=== PATIENT | male | born 1980 | race Caucasian/White ===

== ENCOUNTER 2019-09-13 17:27 | Emergency (ER) | payer MEDICAID ==
[~2019-09-13] VITALS: Ht 180.3 cm; Wt 86.4 kg
[~2019-09-13 17:27] MED LIST: FAMO20TA8 PO
[2019-09-13 17:29] VITALS: BP 161/107
== END 2019-09-13 20:31 | disposition home or self-care (01) ==
LOC: ER 17:28
DX: J00 Acute nasopharyngitis [common cold] (principal); J45.909 Unspecified asthma, uncomplicated; F41.9 Anxiety disorder, unspecified; F32.9 Major depressive disorder, single episode, unspecified; F10.10 Alcohol abuse, uncomplicated; F12.90 Cannabis use, unspecified, uncomplicated; F17.210 Nicotine dependence, cigarettes, uncomplicated; Z79.899 Other long term (current) drug therapy; Z56.0 Unemployment, unspecified; Z59.0 Homelessness; Z86.19 Personal history of other infectious and parasitic diseases; Y90.9 Presence of alcohol in blood, level not specified
CPT/HCPCS: 99283

== ENCOUNTER 2019-11-13 20:14 | Emergency (ER) | payer MEDICAID ==
[~2019-11-13] VITALS: Ht 180.3 cm; Wt 81.0 kg
--- NOTE | 2019-11-13 20:34 | NUR ---
PT IS RESTING QUIETLY ON GURNEY, RESP EVEN AND UNLABORED, GCS 15, ALERT AND ORIENTED, WAITING TO BE EVALUATED BY PROVIDER
--- NOTE | 2019-11-13 21:14 | NUR ---
PT RESTING QUIETLY, RESP EVEN AND UNLABORED, AMB WITH STEADY TO RESTROOM, QI PO WELL, NO N/V
[2019-11-13 21:53] VITALS: BP 139/77
== END 2019-11-13 21:55 | disposition home or self-care (01) ==
LOC: ER 20:14
DX: T40.1X1A Poisoning by heroin, accidental (unintentional), initial encounter (principal); J45.909 Unspecified asthma, uncomplicated; F41.9 Anxiety disorder, unspecified; F32.9 Major depressive disorder, single episode, unspecified; F10.10 Alcohol abuse, uncomplicated; F12.90 Cannabis use, unspecified, uncomplicated; F15.90 Other stimulant use, unspecified, uncomplicated; Z60.2 Problems related to living alone; Z56.0 Unemployment, unspecified; Z59.0 Homelessness; Z86.19 Personal history of other infectious and parasitic diseases; Z79.899 Other long term (current) drug therapy; Y92.89 Other specified places as the place of occurrence of the external cause; Y90.9 Presence of alcohol in blood, level not specified
CPT/HCPCS: 99283

== ENCOUNTER 2020-01-28 22:53 | Emergency (ER) | payer MEDICAID ==
[~2020-01-28] VITALS: Ht 180.3 cm; Wt 70.0 kg
[2020-01-28] MEDS ORDERED: CEPH-572 PO (23:40)
[2020-01-28] MEDS ORDERED: SULF1TAB49 PO (23:40)
[2020-01-28] MEDS ORDERED: CefTRIAXone 1000mg IM Kit (w/lidocaine diluent) IM ONE (23:40)
[2020-01-28] MEDS ORDERED: sulfamethoxazole/trimethoprim DS (800/160mg) tablet PO ONE (23:40)
[2020-01-29 00:16] VITALS: BP 152/99
== END 2020-01-29 00:17 | disposition home or self-care (01) ==
LOC: ER 22:55
DX: S60.561A Insect bite (nonvenomous) of right hand, initial encounter (principal); L03.113 Cellulitis of right upper limb; F41.9 Anxiety disorder, unspecified; F32.9 Major depressive disorder, single episode, unspecified; F12.90 Cannabis use, unspecified, uncomplicated; F15.90 Other stimulant use, unspecified, uncomplicated; F11.90 Opioid use, unspecified, uncomplicated; F10.10 Alcohol abuse, uncomplicated; J45.909 Unspecified asthma, uncomplicated; Z59.0 Homelessness; Z56.0 Unemployment, unspecified; W57.XXXA Bitten or stung by nonvenomous insect and other nonvenomous arthropods, initial encounter; Y93.89 Activity, other specified; Y92.89 Other specified places as the place of occurrence of the external cause; Y99.8 Other external cause status
CPT/HCPCS: 96372; 99283; J0696

== ENCOUNTER 2022-10-23 16:27 | Emergency (ER) | payer MEDICAID ==
[~2022-10-23] VITALS: Ht 180.3 cm; Wt 90.9 kg
[2022-10-23 16:34] VITALS: BP 158/105
[2022-10-23] MEDS ORDERED: normal saline 1000ML IV soln IVB ONE (18:05)
[2022-10-23] MEDS ORDERED: HYDROcodone/acetaminophen 5mg/325mg tablet PO ONE (18:05)
[2022-10-23 18:24] LABS: BASOPHILS # (AUTO) 0.1 X10'3 (0-0.2); BASOPHILS % (AUTO) 0.9 % (0-1); EOSINOPHILS # (AUTO) 0.1 X10'3 (0-0.9); EOSINOPHILS % (AUTO) 1.7 % (0-6); HEMATOCRIT 45.5 % (42.0-52.0); HEMOGLOBIN 14.9 g/dl (14.0-17.9); LYMPHOCYTES # (AUTO) 2.3 X10'3 (1.1-4.8); LYMPHOCYTES % (AUTO) 26.8 % (21-51); MEAN CORPUSCULAR HEMOGLOBIN 31.6 PG (27.0-31.0); MEAN CORPUSCULAR HGB CONC 32.7 g/dL (33.0-36.5); MEAN CORPUSCULAR VOLUME 96.5 FL (78-98); MEAN PLATELET VOLUME 8.9 FL (7.4-10.4); MONOCYTES # (AUTO) 0.5 X10'3 (0-0.9); MONOCYTES % (AUTO) 6.2 % (2-12); NEUTROPHILS # (AUTO) 5.5 X10'3 (1.8-7.7); NEUTROPHILS % (AUTO) 64.4 % (42-75); PLATELET COUNT 283 X10'3 (140-440); RED BLOOD COUNT 4.71 X10'6 (4.70-6.10); RED CELL DISTRIBUTION WIDTH 13.4 % (11.5-14.5); WHITE BLOOD COUNT 8.6 X10'3 (4.5-11.0)
[2022-10-23 18:43] LABS: ALANINE AMINOTRANSFERASE 29 U/L (12-78); ALBUMIN 3.9 G/DL (3.4-5.0); ALBUMIN/GLOBULIN RATIO 1.2 (1.1-1.5); ALKALINE PHOSPHATASE 82 IU/L (46-116); ANION GAP 10 (8-16); ASPARTATE AMINO TRANSFERASE 40 U/L (10-37); BILIRUBIN,TOTAL 0.6 MG/DL (0.1-1.0); BLOOD UREA NITROGEN 16 MG/DL (7-18); BUN/CREATININE RATIO 14.8 (5.4-32.0); CHLORIDE 103 MMOL/L (99-107); CREATININE 1.08 MG/DL (0.60-1.10); GLUCOSE 117 MG/DL (70-104); POTASSIUM 3.6 MMOL/L (3.5-5.1); SODIUM 136 MMOL/L (135-145); TOTAL CARBON DIOXIDE 22.8 MMOL/L (24-32); TOTAL PROTEIN 7.1 G/DL (6.4-8.2); eGFR 75 ML/MIN
[2022-10-23] MEDS ORDERED: sulfamethoxazole/trimethoprim DS (800/160mg) tablet PO ONE (19:00)
[2022-10-23] MEDS ORDERED: cephalexin 500mg capsule PO ONE ×2 (19:00→19:40)
[2022-10-23] MEDS ORDERED: terbinafine cream 30gm TP STA (19:40)
[2022-10-23] MEDS ORDERED: SULF1TAB49 PO (20:00)
[2022-10-23] MEDS ORDERED: HYDR-3965 PO (20:00)
[2022-10-23] MEDS ORDERED: CEPH500C82 PO (20:00)
== END 2022-10-23 20:44 | disposition home or self-care (01) ==
LOC: ER 16:28
DX: L03.116 Cellulitis of left lower limb (principal); L03.115 Cellulitis of right lower limb; B99.8 Other infectious disease; F31.9 Bipolar disorder, unspecified; J45.909 Unspecified asthma, uncomplicated; F12.10 Cannabis abuse, uncomplicated; F15.10 Other stimulant abuse, uncomplicated; Z79.899 Other long term (current) drug therapy; Z59.00 Homelessness unspecified; Z56.0 Unemployment, unspecified
CPT/HCPCS: 36415; 73630; 80053; 83605; 85025; 87040; 96360; 99284; J7030

== ENCOUNTER 2023-08-27 15:20 | Emergency (ER) | payer MEDICAID ==
[~2023-08-27] VITALS: Ht 177.8 cm; Wt 75.0 kg
--- NOTE | 2023-08-27 18:30 | NUR ---
Patient is sleeping in a low fowlers position. No distress.
--- NOTE | 2023-08-27 19:26 | NUR ---
Patient has repositioned onto his left side. No distress.
--- NOTE | 2023-08-27 20:41 | NUR ---
Patient is sleeping quietly on his right side. In view from nurses station.
--- NOTE | 2023-08-27 22:29 | NUR ---
Patient awakens, he is aggitated. Patient slams his fist into the bed. 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 He demands food.
[2023-08-27] MEDS ORDERED: LORazepam 1 MG tablet PO ONE (22:50)
[2023-08-27] MEDS ORDERED: diphenhydrAMINE 25mg capsule PO ONE (22:50)
[2023-08-27 22:59] LABS: MEAN CORPUSCULAR HEMOGLOBIN 32.3 PG (27.0-31.0); MEAN PLATELET VOLUME 8.6 FL (7.4-10.4)
[2023-08-27 23:00] LABS: BASOPHILS # (AUTO) 0.1 X10'3 (0-0.2); BASOPHILS % (AUTO) 1.2 % (0-1); EOSINOPHILS # (AUTO) 0.1 X10'3 (0-0.9); EOSINOPHILS % (AUTO) 1.8 % (0-6); HEMATOCRIT 42.2 % (42.0-52.0); HEMOGLOBIN 14.2 g/dl (14.0-17.9); LYMPHOCYTES # (AUTO) 2.7 X10'3 (1.1-4.8); LYMPHOCYTES % (AUTO) 37.6 % (21-51); MEAN CORPUSCULAR HGB CONC 33.6 g/dL (33.0-36.5); MEAN CORPUSCULAR VOLUME 96.2 FL (78-98); MONOCYTES # (AUTO) 0.5 X10'3 (0-0.9); MONOCYTES % (AUTO) 6.8 % (2-12); NEUTROPHILS # (AUTO) 3.7 X10'3 (1.8-7.7); NEUTROPHILS % (AUTO) 52.6 % (42-75); PLATELET COUNT 231 X10'3 (140-440); RED BLOOD COUNT 4.39 X10'6 (4.70-6.10); RED CELL DISTRIBUTION WIDTH 13.3 % (11.5-14.5); WHITE BLOOD COUNT 7.1 X10'3 (4.5-11.0)
[2023-08-27 23:06] LABS: ALANINE AMINOTRANSFERASE 21 U/L (12-78); ALBUMIN 3.1 G/DL (3.4-5.0); ALBUMIN/GLOBULIN RATIO 1.2 (1.1-1.5); ALKALINE PHOSPHATASE 70 IU/L (46-116); ANION GAP 7 (8-16); ASPARTATE AMINO TRANSFERASE 32 U/L (10-37); BILIRUBIN,TOTAL 0.5 MG/DL (0.1-1.0); BLOOD UREA NITROGEN 15 MG/DL (7-18); BUN/CREATININE RATIO 14.3 (10.0-20.0); CALCIUM 8.7 MG/DL (8.5-10.1); CHLORIDE 106 MMOL/L (99-107); CREATININE 1.05 MG/DL (0.60-1.10); GLUCOSE 89 MG/DL (70-104); POTASSIUM 3.6 MMOL/L (3.5-5.1); SODIUM 138 MMOL/L (135-145); TOTAL CARBON DIOXIDE 24.6 MMOL/L (24-32); TOTAL PROTEIN 5.7 G/DL (6.4-8.2); eCRCL 93 ML/MIN; eGFR 77 ML/MIN
[2023-08-27 23:15] LABS: THYROID STIMULATING HORMONE 0.46 ulU/ml (0.34-4.50)
--- NOTE | 2023-08-28 01:15 | NUR ---
Patient sleeps well. Good color. He has self repositioned in bed.
--- NOTE | 2023-08-28 01:21 | NUR ---
Unable to complete [place] Suicide Score as patient is uncooperative and will not answer questions. Per 5150 this patient was going to jump from a bridge.
[2023-08-28 04:05] LABS: URINE AMPHETAMINE SCREEN POSITIVE (Neg); URINE BARBITUATE SCREEN NEGATIVE (Neg); URINE BENZODIAZEPINES SCREEN NEGATIVE (Neg); URINE CANNABINOID SCREEN NEGATIVE (Neg); URINE COCAINE SCREEN NEGATIVE (Neg); URINE METHADONE SCREEN NEGATIVE (Neg); URINE OPIATE SCREEN NEGATIVE (Neg); URINE PHENCYCLIDINE SCREEN NEGATIVE (Neg)
[2023-08-28 04:06] LABS: BILIRUBIN,URINE SMALL (Neg); CLARITY,URINE CLEAR (Clear); GLUCOSE, URINE NEGATIVE (Neg); KETONES,URINE TRACE mg/dl (Neg); LEUKOCYTE ESTERASE ,URINE NEGATIVE (Neg); NITRITES, URINE NEGATIVE (Neg); OCCULT BLOOD,URINE NEGATIVE (Neg); PH,URINE 5.5 (4.8-8.0); PROTEIN,URINE NEGATIVE (Neg); UROBILINOGEN,URINE 0.2 E.U/dL (0.2-1.0)
[2023-08-28 04:17] LABS: COLOR,URINE DARK YELLOW (Yellow); UA COLLECTION TYPE NON-SPECIFIED
--- NOTE | 2023-08-28 04:17 | NUR ---
Patient sleeps quietly, no distress.
[2023-08-28 04:21] LABS: BACTERIA,URINE FEW /HPF (Neg); MUCUS STRANDS MANY /LPF (Neg); RBC,URINE 0-2 /HPF (0-2); SQUAMOUS EPITHELIAL CELL,UR FEW /LPF (FEW); WBC,URINE 0-4 /HPF (0-4)
[2023-08-28 04:27] LABS: HYALINE CASTS 0-3 /LPF (NEGATIVE); TRICHOMONAS,URINE FEW /HPF (NEGATIVE)
[2023-08-28] MEDS ORDERED: ondansetron 4mg rapidly disintigrating tab PO ONE (04:45)
[2023-08-28] MEDS ORDERED: metroNIDAZOLE 500mg tablet PO ONE (04:45)
--- NOTE | 2023-08-28 05:50 | NUR ---
Patient sleeps quietly. He has repositioned self in bed. No distress.
--- NOTE | 2023-08-28 06:30 | NUR ---
Pt asleep in bed on left side. Respirations even and unlabored. No s/s of distress. Will continue to monitor.
--- NOTE | 2023-08-28 08:30 | NUR ---
Pt asleep in bed lying on left side. Respirations even and unlabored. No s/s of distress.
--- NOTE | 2023-08-28 09:00 | NUR ---
Pt is eating breakfast at bedside.
--- NOTE | 2023-08-28 09:53 | NUR ---
[facility] with pt. Pt uncooperative.
--- NOTE | 2023-08-28 10:08 | NUR ---
Pt escorted out by security. Pt was yelling.
[2023-08-28 10:23] VITALS: BP 152/110; PULSE 84; RESP 16; TEMP 98.3; O2SAT 99
== END 2023-08-28 10:08 | disposition home or self-care (01) ==
LOC: ER 15:20
DX: R45.851 Suicidal ideations (principal); Z20.822 Contact with and (suspected) exposure to COVID-19; J45.909 Unspecified asthma, uncomplicated; F12.90 Cannabis use, unspecified, uncomplicated; F15.90 Other stimulant use, unspecified, uncomplicated; F11.90 Opioid use, unspecified, uncomplicated; F41.9 Anxiety disorder, unspecified; F32.A Depression, unspecified; Z76.5 Malingerer [conscious simulation]; Z56.0 Unemployment, unspecified; Z59.00 Homelessness unspecified; Z79.899 Other long term (current) drug therapy
CPT/HCPCS: 36415; 80053; 80305; 81001; 84443; 85025; 87811; 99285; Q0163

== ENCOUNTER 2024-09-10 00:02 | Inpatient (IN) | payer MEDICAID ==
[~2024-09-10] VITALS: Ht 180.3 cm; Wt 83.0 kg
[2024-09-10] MEDS: piperacillin/tazo 3.375gm/50ml 50 ML IV ONE (02:32)
[2024-09-10 02:50] LABS: ANION GAP 8 (8-16); BLOOD UREA NITROGEN 16 MG/DL (7-18); BUN/CREATININE RATIO 13.3 (10.0-20.0); CALCIUM 8.6 MG/DL (8.5-10.1); CHLORIDE 103 MMOL/L (99-107); GLUCOSE 119 MG/DL (70-104); POTASSIUM 3.7 MMOL/L (3.5-5.1); SODIUM 136 MMOL/L (135-145); TOTAL CARBON DIOXIDE 25.2 MMOL/L (24-32); eCRCL 77 ML/MIN; eGFR 65 ML/MIN
[2024-09-10 02:52] LABS: BASOPHILS # (AUTO) 0.1 X10'3 (0-0.2); BASOPHILS % (AUTO) 0.7 % (0-1); EOSINOPHILS # (AUTO) 0.1 X10'3 (0-0.9); HEMOGLOBIN 14.2 g/dl (14.0-17.9); LYMPHOCYTES # (AUTO) 1.8 X10'3 (1.1-4.8); MONOCYTES # (AUTO) 0.6 X10'3 (0-0.9)
[2024-09-10 02:55] LABS: HEMATOCRIT 41.4 % (42.0-52.0); LYMPHOCYTES % (AUTO) 18.8 % (21-51); MEAN CORPUSCULAR HEMOGLOBIN 32.1 PG (27.0-31.0); MEAN CORPUSCULAR HGB CONC 34.3 g/dL (33.0-36.5); MEAN CORPUSCULAR VOLUME 93.5 FL (78-98); MEAN PLATELET VOLUME 9.3 FL (7.4-10.4); MONOCYTES % (AUTO) 6.3 % (2-12); NEUTROPHILS # (AUTO) 6.9 X10'3 (1.8-7.7); NEUTROPHILS % (AUTO) 73.2 % (42-75); PLATELET COUNT 279 X10'3 (140-440); RED BLOOD COUNT 4.43 X10'6 (4.70-6.10); RED CELL DISTRIBUTION WIDTH 13.1 % (11.5-14.5); WHITE BLOOD COUNT 9.5 X10'3 (4.5-11.0)
[2024-09-10] MEDS: VANCOMYCIN 1,500MG in normal saline IV soln 300 ML IV ONE (02:59)
[2024-09-10] MEDS ORDERED: magnesium sulf-water 2g/50mL 50 ML IV PRN (05:20)
[2024-09-10] MEDS ORDERED: potassium Cl 40MEQ/1/2NS 520ml 520 ML IV PRN (05:20)
[2024-09-10] MEDS ORDERED: dextrose 50%-water 50ml dispensing syringe IV PRN (05:20)
[2024-09-10] MEDS ORDERED: mag hydrox/Alum hydrox/simeth 30ml oral suspension PO PRN (05:20)
[2024-09-10] MEDS ORDERED: magnesium Cl slow-release 64mg tablet PO PRN (05:20)
[2024-09-10] MEDS ORDERED: potassium Cl 20 mEq SR tablet PO PRN ×2 (05:20)
[2024-09-10] MEDS ORDERED: ondansetron/PF 4mg/2ml inj IV PRN (05:20)
[2024-09-10] MEDS ORDERED: acetaminophen 325mg tablet PO PRN (05:20)
[2024-09-10] MEDS ORDERED: haloperidol 5mg tablet PO PRN (05:20)
[2024-09-10] MEDS ORDERED: LORazepam 1 MG tablet PO PRN ×2 (05:20→15:00)
[2024-09-10] MEDS ORDERED: magnesium sulf-water 4G/100mL 100 ML IV PRN (05:20)
[2024-09-10] MEDS ORDERED: magnesium hydroxide 30ml (MOM) UD suspension PO PRN (05:20)
[2024-09-10] MEDS ORDERED: LORazepam 2 mg/ml vial IV PRN ×2 (05:20→15:00)
[2024-09-10] MEDS ORDERED: haloperidol lactate 5mg/ml inj IM PRN (05:20)
[2024-09-10] MEDS: PERFLUTREN PROTEIN-A MICROSPHR (Optison) 0.22 MG/ML 3ML VIAL IV ONE (05:29)
[2024-09-10] MEDS ORDERED: NO HOME MEDS (05:42)
[2024-09-10 07:00] VITALS: BP 135/84; PULSE 78; RESP 18; TEMP 97.3; O2SAT 97
[2024-09-10] MEDS: K and/or MAG REPLACEMENT MC SCH (08:00)
[2024-09-10 08:06] LABS: BILIRUBIN,URINE NEGATIVE (Neg); CLARITY,URINE CLEAR (Clear); COLOR,URINE YELLOW (Yellow); GLUCOSE, URINE NEGATIVE (Neg); KETONES,URINE NEGATIVE (Neg); LEUKOCYTE ESTERASE ,URINE NEGATIVE (Neg); NITRITES, URINE NEGATIVE (Neg); OCCULT BLOOD,URINE NEGATIVE (Neg); PH,URINE 5.5 (4.8-8.0); PROTEIN,URINE NEGATIVE (Neg); UROBILINOGEN,URINE 0.2 E.U/dL (0.2-1.0)
[2024-09-10] MEDS: HYDROcodone/acetaminophen 5mg/325mg tablet PO PRN (08:12)
[2024-09-10 08:13] LABS: UA COLLECTION TYPE URINAL
[2024-09-10] MEDS: nicotine 14mg patch - 24hr TD SCH (08:32)
[2024-09-10] MEDS: docusate sod 100mg capsule PO SCH (08:32)
[2024-09-10] MEDS: thiamine 100mg/ml 2ml inj. IV SCH (08:32)
[2024-09-10] MEDS: enoxaparin 40mg/0.4ml syringe SUBCUT SCH (08:33)
[2024-09-10 08:54] LABS: URINE AMPHETAMINE SCREEN POSITIVE (Neg); URINE BARBITUATE SCREEN NEGATIVE (Neg); URINE BENZODIAZEPINES SCREEN NEGATIVE (Neg); URINE CANNABINOID SCREEN NEGATIVE (Neg); URINE COCAINE SCREEN NEGATIVE (Neg); URINE METHADONE SCREEN NEGATIVE (Neg); URINE OPIATE SCREEN NEGATIVE (Neg); URINE PHENCYCLIDINE SCREEN NEGATIVE (Neg)
[2024-09-10 10:00] VITALS: RESP 18
[2024-09-10 10:05] LABS: HEMOGLOBIN A1C 4.8 % (4.5-6.2)
[2024-09-10] MEDS: folic acid 1mg/0.2ml inj IV SCH (12:08)
[2024-09-10 12:44] VITALS: BP 134/83; PULSE 88; TEMP 97.4; O2SAT 97
[2024-09-10] MEDS: piperacillin/tazo 3.375gm/50ml 50 ML IV SCH (13:03)
[2024-09-10] MEDS: VANCOMYCIN 1GM 200ML H20 (PEG) 200 ML IV SCH (15:41)
[2024-09-10 18:00] VITALS: BP 133/80; PULSE 90; RESP 16; TEMP 97.3; O2SAT 97
[2024-09-10 20:00] VITALS: RESP 16; O2SAT 97
[2024-09-10 22:00] VITALS: BP 145/95; PULSE 89; RESP 18; TEMP 97.5; O2SAT 97
[2024-09-11 02:54] LABS: BASOPHILS # (AUTO) 0.1 X10'3 (0-0.2); EOSINOPHILS # (AUTO) 0.2 X10'3 (0-0.9); EOSINOPHILS % (AUTO) 2.5 % (0-6); HEMATOCRIT 40.6 % (42.0-52.0); HEMOGLOBIN 13.5 g/dl (14.0-17.9); LYMPHOCYTES # (AUTO) 2.2 X10'3 (1.1-4.8); LYMPHOCYTES % (AUTO) 34.3 % (21-51); MEAN CORPUSCULAR HEMOGLOBIN 31.5 PG (27.0-31.0); MEAN CORPUSCULAR HGB CONC 33.3 g/dL (33.0-36.5); MEAN CORPUSCULAR VOLUME 94.8 FL (78-98); MEAN PLATELET VOLUME 8.6 FL (7.4-10.4); MONOCYTES # (AUTO) 0.6 X10'3 (0-0.9); MONOCYTES % (AUTO) 9.2 % (2-12); NEUTROPHILS # (AUTO) 3.4 X10'3 (1.8-7.7); PLATELET COUNT 248 X10'3 (140-440); RED BLOOD COUNT 4.28 X10'6 (4.70-6.10); RED CELL DISTRIBUTION WIDTH 13.4 % (11.5-14.5); WHITE BLOOD COUNT 6.4 X10'3 (4.5-11.0)
[2024-09-11 03:04] LABS: ANION GAP 6 (8-16); BLOOD UREA NITROGEN 12 MG/DL (7-18); BUN/CREATININE RATIO 12.5 (10.0-20.0); CALCIUM 8.2 MG/DL (8.5-10.1); CHLORIDE 104 MMOL/L (99-107); CREATININE 0.96 MG/DL (0.60-1.10); GLUCOSE 101 MG/DL (70-104); MAGNESIUM 1.6 MG/DL (1.5-2.4); POTASSIUM 3.9 MMOL/L (3.5-5.1); SODIUM 139 MMOL/L (135-145); eCRCL 96 ML/MIN; eGFR 85 ML/MIN
[2024-09-11 06:00] VITALS: BP 144/89; PULSE 84; RESP 16; TEMP 97.9; O2SAT 96
[2024-09-11 11:00] VITALS: BP 138/88; PULSE 90; RESP 14; TEMP 98; O2SAT 98
[2024-09-11] MEDS: carVEDilol 3.125mg tablet PO SCH (11:04)
[2024-09-11] MEDS: VANCOMYCIN LEVEL IV ONE (14:40)
[2024-09-11 18:00] VITALS: BP 156/99; PULSE 84; RESP 18; TEMP 97.4; O2SAT 99
[2024-09-11] MEDS: lisinopril 5mg tablet PO SCH (19:28)
[2024-09-11 20:00] VITALS: RESP 18; O2SAT 99
[2024-09-11 22:00] VITALS: BP 152/100; PULSE 66; RESP 16; TEMP 98.1; O2SAT 98
[2024-09-12] MEDS: VANCOMYCIN 1,500MG in NS 300ml IVPB IV SCH (04:06)
[2024-09-12 06:13] LABS: BASOPHILS # (AUTO) 0.1 X10'3 (0-0.2); EOSINOPHILS # (AUTO) 0.2 X10'3 (0-0.9); EOSINOPHILS % (AUTO) 2.6 % (0-6); HEMATOCRIT 41.6 % (42.0-52.0); HEMOGLOBIN 13.9 g/dl (14.0-17.9); LYMPHOCYTES # (AUTO) 2.5 X10'3 (1.1-4.8); LYMPHOCYTES % (AUTO) 30.7 % (21-51); MEAN CORPUSCULAR HEMOGLOBIN 31.5 PG (27.0-31.0); MEAN CORPUSCULAR HGB CONC 33.5 g/dL (33.0-36.5); MEAN CORPUSCULAR VOLUME 94.1 FL (78-98); MEAN PLATELET VOLUME 9.2 FL (7.4-10.4); MONOCYTES # (AUTO) 0.7 X10'3 (0-0.9); MONOCYTES % (AUTO) 8.7 % (2-12); NEUTROPHILS # (AUTO) 4.6 X10'3 (1.8-7.7); PLATELET COUNT 241 X10'3 (140-440); RED BLOOD COUNT 4.42 X10'6 (4.70-6.10); RED CELL DISTRIBUTION WIDTH 13.2 % (11.5-14.5); WHITE BLOOD COUNT 8.1 X10'3 (4.5-11.0)
[2024-09-12 06:17] LABS: ANION GAP 6 (8-16); BLOOD UREA NITROGEN 12 MG/DL (7-18); CALCIUM 8.1 MG/DL (8.5-10.1); CHLORIDE 103 MMOL/L (99-107); CREATININE 0.86 MG/DL (0.60-1.10); GLUCOSE 87 MG/DL (70-104); MAGNESIUM 1.6 MG/DL (1.5-2.4); POTASSIUM 4.1 MMOL/L (3.5-5.1); SODIUM 136 MMOL/L (135-145); TOTAL CARBON DIOXIDE 27.3 MMOL/L (24-32); eCRCL 116 ML/MIN; eGFR > 90 ML/MIN
[2024-09-12 07:00] VITALS: BP 142/100; PULSE 77; RESP 16; TEMP 98.9; O2SAT 98
[2024-09-12 07:24] VITALS: BP_SYST 142; PULSE 77
[2024-09-12] MEDS ORDERED: CARV-164 PO (10:28)
[2024-09-12] MEDS ORDERED: LISI5TAB22 PO (10:28)
[2024-09-12] MEDS ORDERED: CEPH250T PO (10:28)
[2024-09-12] MEDS ORDERED: NICO-631 TD (10:28)
[2024-09-12] MEDS ORDERED: FOLI1TAB27 PO (10:28)
[2024-09-12] MEDS ORDERED: thiamine tablet PO (10:28)
[2024-09-12] MEDS ORDERED: ACET-1008 PO (11:34)
[2024-09-13] MEDS ORDERED: VANCOMYCIN LEVEL IV ONE (15:30)
[2024-09-14] MEDS ORDERED: thiamine 100mg tablet PO SCH (08:00)
[2024-09-14] MEDS ORDERED: folic acid 1mg tablet PO SCH (08:00)
== END 2024-09-12 15:30 | disposition home or self-care (01) | DRG 383 ==
LOC: ER 00:03 → ED HOLD 05:24 → EDBEDREQ 05:36 → SUR 3N 07:00
PROVIDERS: ADMIT Internal Medicine Pulmonary Disease; ATTEND Internal Medicine
DX: L03.115 Cellulitis of right lower limb (principal); I50.22 Chronic systolic (congestive) heart failure; B19.20 Unspecified viral hepatitis C without hepatic coma; J45.909 Unspecified asthma, uncomplicated; F15.10 Other stimulant abuse, uncomplicated; F10.10 Alcohol abuse, uncomplicated; F32.A Depression, unspecified; F41.9 Anxiety disorder, unspecified; L03.116 Cellulitis of left lower limb; K86.1 Other chronic pancreatitis; Z59.00 Homelessness unspecified; Z87.891 Personal history of nicotine dependence
CPT/HCPCS: 36415; 71045; 73620; 80048; 80202; 80305; 81003; 82948; 83036; 83735; 83880; 84145; 85025; 87081; 93005; 93306; 93925; 93970; 96365; 96367; 97161; 97530; 99285; G0378; J1650; J2543; J3370; J3372; J3411; J3490; J7040

== ENCOUNTER 2024-10-19 16:27 | Inpatient (IN) | payer MEDICAID ==
[~2024-10-19] VITALS: Ht 175.3 cm; Wt 84.0 kg
[~2024-10-19 16:27] MED LIST changes: +ACET-1008 PO; +CARV-164 PO; -FAMO20TA8 PO; +FOLI1TAB27 PO; +LISI5TAB22 PO; +NICO-631 TD; +thiamine tablet PO
[2024-10-19 16:59] LABS: BILIRUBIN,URINE NEGATIVE (Neg); CLARITY,URINE CLOUDY (Clear); COLOR,URINE YELLOW (Yellow); GLUCOSE, URINE NEGATIVE (Neg); KETONES,URINE NEGATIVE (Neg); LEUKOCYTE ESTERASE ,URINE MODERATE (Neg); NITRITES, URINE POSITIVE (Neg); OCCULT BLOOD,URINE MODERATE (Neg); PH,URINE 8.5 (4.8-8.0); PROTEIN,URINE 100 mg/dl (Neg); UROBILINOGEN,URINE 0.2 E.U/dL (0.2-1.0)
[2024-10-19] MEDS ORDERED: carvedilol 6.25mg tablet PO SCH (17:05)
[2024-10-19 17:10] LABS: UA COLLECTION TYPE CLN CATCH MIDSTREAM
[2024-10-19 17:13] LABS: SQUAMOUS EPITHELIAL CELL,UR NONE SEEN /LPF (FEW); WBC,URINE TNTC /HPF (0-4)
[2024-10-19 17:14] LABS: BACTERIA,URINE 4+ /HPF (Neg); RBC,URINE 0-2 /HPF (0-2)
[2024-10-19 18:06] LABS: BASOPHILS # (AUTO) 0.1 X10'3 (0-0.2); EOSINOPHILS # (AUTO) 0.2 X10'3 (0-0.9); HEMATOCRIT 39.5 % (42.0-52.0); HEMOGLOBIN 13.3 g/dl (14.0-17.9); LYMPHOCYTES % (AUTO) 25.3 % (21-51); MEAN CORPUSCULAR HEMOGLOBIN 31.6 PG (27.0-31.0); MEAN CORPUSCULAR HGB CONC 33.8 g/dL (33.0-36.5); MEAN CORPUSCULAR VOLUME 93.3 FL (78-98); MEAN PLATELET VOLUME 8.8 FL (7.4-10.4); MONOCYTES # (AUTO) 0.7 X10'3 (0-0.9); MONOCYTES % (AUTO) 8.5 % (2-12); NEUTROPHILS # (AUTO) 4.9 X10'3 (1.8-7.7); NEUTROPHILS % (AUTO) 63.2 % (42-75); PLATELET COUNT 330 X10'3 (140-440); RED BLOOD COUNT 4.23 X10'6 (4.70-6.10); RED CELL DISTRIBUTION WIDTH 13.9 % (11.5-14.5); WHITE BLOOD COUNT 7.7 X10'3 (4.5-11.0)
[2024-10-19] MEDS: CefTRIAXone 2gm/D5W 50ml BAG 50 ML IV ONE (18:10)
[2024-10-19] MEDS: carvedilol 6.25mg tablet PO ONE (18:12)
[2024-10-19 20:10] LABS: ALBUMIN 3.6 G/DL (3.4-5.0); ANION GAP 8 (8-16); BLOOD UREA NITROGEN 13 MG/DL (7-18); BUN/CREATININE RATIO 11.3 (10.0-20.0); CALCIUM 8.7 MG/DL (8.5-10.1); CHLORIDE 107 MMOL/L (99-107); CREATININE 1.15 MG/DL (0.60-1.10); GLUCOSE 99 MG/DL (70-104); MAGNESIUM 1.9 MG/DL (1.5-2.4); POTASSIUM 4.2 MMOL/L (3.5-5.1); PRO BRAIN NATRIURETIC PEPTIDE 1707 PG/ML (0-125); SODIUM 140 MMOL/L (135-145); TOTAL CARBON DIOXIDE 24.9 MMOL/L (24-32); eCRCL 81 ML/MIN; eGFR 69 ML/MIN
[2024-10-19] MEDS ORDERED: NO HOME MEDS (20:31)
[2024-10-19] MEDS ORDERED: magnesium sulf-water 2g/50mL 50 ML IV PRN (20:40)
[2024-10-19] MEDS ORDERED: mag hydrox/Alum hydrox/simeth 30ml oral suspension PO PRN (20:40)
[2024-10-19] MEDS ORDERED: magnesium Cl slow-release 64mg tablet PO PRN (20:40)
[2024-10-19] MEDS ORDERED: magnesium sulf-water 4G/100mL 100 ML IV PRN (20:40)
[2024-10-19] MEDS ORDERED: magnesium hydroxide 30ml (MOM) UD suspension PO PRN (20:40)
[2024-10-19] MEDS ORDERED: potassium Cl 40MEQ/1/2NS 520ml 520 ML IV PRN (20:40)
[2024-10-19] MEDS ORDERED: potassium Cl 20 mEq SR tablet PO PRN ×2 (20:40)
[2024-10-19] MEDS ORDERED: acetaminophen 325mg tablet PO PRN (20:40)
[2024-10-19] MEDS: nicotine 14mg patch - 24hr TD SCH (21:29)
[2024-10-19] MEDS: lisinopril 10 MG tablet PO SCH (21:29)
[2024-10-19] MEDS: lisinopril 10 MG tablet PO ONE (21:30)
[2024-10-19] MEDS: nicotine 14mg patch - 24hr TD ONE (21:30)
[2024-10-19 22:31] LABS: URINE AMPHETAMINE SCREEN POSITIVE (Neg); URINE BARBITUATE SCREEN NEGATIVE (Neg); URINE BENZODIAZEPINES SCREEN NEGATIVE (Neg); URINE CANNABINOID SCREEN NEGATIVE (Neg); URINE COCAINE SCREEN NEGATIVE (Neg); URINE METHADONE SCREEN NEGATIVE (Neg); URINE OPIATE SCREEN NEGATIVE (Neg); URINE PHENCYCLIDINE SCREEN NEGATIVE (Neg)
[2024-10-19 22:32] LABS: ETHANOL < 10 MG/DL (<10)
[2024-10-20 06:00] VITALS: BP 120/54; PULSE 56; RESP 13; TEMP 97.6; O2SAT 95
[2024-10-20 06:31] LABS: BASOPHILS # (AUTO) 0.1 X10'3 (0-0.2); BASOPHILS % (AUTO) 1.2 % (0-1); EOSINOPHILS # (AUTO) 0.3 X10'3 (0-0.9); EOSINOPHILS % (AUTO) 3.4 % (0-6); HEMATOCRIT 39.9 % (42.0-52.0); HEMOGLOBIN 13.3 g/dl (14.0-17.9); LYMPHOCYTES # (AUTO) 1.8 X10'3 (1.1-4.8); LYMPHOCYTES % (AUTO) 22.9 % (21-51); MEAN CORPUSCULAR HEMOGLOBIN 31.4 PG (27.0-31.0); MEAN CORPUSCULAR HGB CONC 33.3 g/dL (33.0-36.5); MEAN CORPUSCULAR VOLUME 94.1 FL (78-98); MEAN PLATELET VOLUME 8.6 FL (7.4-10.4); MONOCYTES # (AUTO) 0.8 X10'3 (0-0.9); MONOCYTES % (AUTO) 9.9 % (2-12); NEUTROPHILS # (AUTO) 4.8 X10'3 (1.8-7.7); NEUTROPHILS % (AUTO) 62.6 % (42-75); PLATELET COUNT 316 X10'3 (140-440); RED BLOOD COUNT 4.24 X10'6 (4.70-6.10); RED CELL DISTRIBUTION WIDTH 14.1 % (11.5-14.5); WHITE BLOOD COUNT 7.7 X10'3 (4.5-11.0)
[2024-10-20 06:47] LABS: ALANINE AMINOTRANSFERASE 20 U/L (12-78); ALBUMIN 3.2 G/DL (3.4-5.0); ALBUMIN/GLOBULIN RATIO 0.9 (1.1-1.5); ALKALINE PHOSPHATASE 86 IU/L (46-116); ANION GAP 7 (8-16); ASPARTATE AMINO TRANSFERASE 15 U/L (10-37); BILIRUBIN,TOTAL 0.4 MG/DL (0.1-1.0); BLOOD UREA NITROGEN 13 MG/DL (7-18); BUN/CREATININE RATIO 12.1 (10.0-20.0); CALCIUM 8.7 MG/DL (8.5-10.1); CHLORIDE 107 MMOL/L (99-107); CREATININE 1.07 MG/DL (0.60-1.10); GLUCOSE 109 MG/DL (70-104); MAGNESIUM 1.9 MG/DL (1.5-2.4); POTASSIUM 3.9 MMOL/L (3.5-5.1); SODIUM 140 MMOL/L (135-145); TOTAL PROTEIN 6.7 G/DL (6.4-8.2); eCRCL 87 ML/MIN; eGFR 75 ML/MIN
[2024-10-20] MEDS ORDERED: enoxaparin 40mg/0.4ml syringe SUBCUT SCH (08:00)
[2024-10-20 10:00] VITALS: BP 136/89; PULSE 84; RESP 20; TEMP 98.5; O2SAT 99
[2024-10-20] MEDS: K and/or MAG REPLACEMENT MC SCH (10:55)
[2024-10-20] MEDS: docusate sod 100mg capsule PO SCH (10:59)
[2024-10-20] MEDS: carvedilol 6.25mg tablet PO SCH (10:59)
[2024-10-20] MEDS: heparin, porcine 5000 units/ml vial SQ SCH (11:00)
[2024-10-20 11:48] LABS: TOTAL PROTEIN,URINE RANDOM 150.8 MG/DL
[2024-10-20 16:30] VITALS: RESP 20; O2SAT 99
[2024-10-20 18:00] VITALS: BP 136/78; PULSE 90; RESP 16; TEMP 98.6; O2SAT 97
[2024-10-20] MEDS: CefTRIAXone/D5W-Rocephin 1gm 50 ML IV SCH (18:59)
[2024-10-20 22:00] VITALS: BP 129/84; PULSE 80; RESP 16; TEMP 98.8; O2SAT 99
[2024-10-21 06:00] VITALS: BP 132/88; PULSE 70; RESP 16; TEMP 98.4; O2SAT 91
[2024-10-21] MEDS: ondansetron/PF 4mg/2ml inj IV PRN (07:25)
[2024-10-21 07:47] LABS: BASOPHILS # (AUTO) 0.1 X10'3 (0-0.2); BASOPHILS % (AUTO) 0.8 % (0-1); EOSINOPHILS # (AUTO) 0.2 X10'3 (0-0.9); EOSINOPHILS % (AUTO) 3.5 % (0-6); HEMATOCRIT 41.1 % (42.0-52.0); HEMOGLOBIN 13.8 g/dl (14.0-17.9); LYMPHOCYTES # (AUTO) 2.1 X10'3 (1.1-4.8); LYMPHOCYTES % (AUTO) 30.3 % (21-51); MEAN CORPUSCULAR HEMOGLOBIN 31.5 PG (27.0-31.0); MEAN CORPUSCULAR HGB CONC 33.6 g/dL (33.0-36.5); MEAN CORPUSCULAR VOLUME 93.6 FL (78-98); MEAN PLATELET VOLUME 8.7 FL (7.4-10.4); MONOCYTES # (AUTO) 0.7 X10'3 (0-0.9); NEUTROPHILS # (AUTO) 3.8 X10'3 (1.8-7.7); NEUTROPHILS % (AUTO) 55.4 % (42-75); PLATELET COUNT 296 X10'3 (140-440); RED BLOOD COUNT 4.39 X10'6 (4.70-6.10); RED CELL DISTRIBUTION WIDTH 13.9 % (11.5-14.5); WHITE BLOOD COUNT 6.9 X10'3 (4.5-11.0)
[2024-10-21 08:05] LABS: ALANINE AMINOTRANSFERASE 25 U/L (12-78); ALBUMIN 3.1 G/DL (3.4-5.0); ALBUMIN/GLOBULIN RATIO 0.9 (1.1-1.5); ALKALINE PHOSPHATASE 84 IU/L (46-116); ANION GAP 6 (8-16); ASPARTATE AMINO TRANSFERASE 24 U/L (10-37); BILIRUBIN,TOTAL 0.5 MG/DL (0.1-1.0); BLOOD UREA NITROGEN 14 MG/DL (7-18); BUN/CREATININE RATIO 12.8 (10.0-20.0); CALCIUM 8.9 MG/DL (8.5-10.1); CHLORIDE 105 MMOL/L (99-107); CREATININE 1.09 MG/DL (0.60-1.10); GLUCOSE 92 MG/DL (70-104); MAGNESIUM 1.9 MG/DL (1.5-2.4); POTASSIUM 4.3 MMOL/L (3.5-5.1); SODIUM 139 MMOL/L (135-145); TOTAL CARBON DIOXIDE 28.4 MMOL/L (24-32); TOTAL PROTEIN 6.7 G/DL (6.4-8.2); eCRCL 86 ML/MIN; eGFR 73 ML/MIN
[2024-10-21 10:00] VITALS: BP 138/88; PULSE 81; RESP 17; TEMP 97.6; O2SAT 98
[2024-10-21 18:00] VITALS: BP 128/85; PULSE 75; RESP 15; TEMP 97.5; O2SAT 100
[2024-10-21 22:00] VITALS: BP 128/80; PULSE 57; RESP 16; TEMP 98.1; O2SAT 100
[2024-10-21 23:26] VITALS: BP 117/84; PULSE 85; RESP 20; TEMP 97.7; O2SAT 98
[2024-10-22 06:00] VITALS: BP 127/79; PULSE 68; RESP 14; TEMP 98.1; O2SAT 98
[2024-10-22 06:00] LABS: BASOPHILS # (AUTO) 0.1 X10'3 (0-0.2); BASOPHILS % (AUTO) 0.8 % (0-1); EOSINOPHILS # (AUTO) 0.3 X10'3 (0-0.9); EOSINOPHILS % (AUTO) 3.2 % (0-6); HEMATOCRIT 43.7 % (42.0-52.0); HEMOGLOBIN 14.8 g/dl (14.0-17.9); LYMPHOCYTES # (AUTO) 2.2 X10'3 (1.1-4.8); LYMPHOCYTES % (AUTO) 27.6 % (21-51); MEAN CORPUSCULAR HEMOGLOBIN 31.6 PG (27.0-31.0); MEAN CORPUSCULAR HGB CONC 33.8 g/dL (33.0-36.5); MEAN CORPUSCULAR VOLUME 93.6 FL (78-98); MEAN PLATELET VOLUME 9.1 FL (7.4-10.4); MONOCYTES # (AUTO) 0.8 X10'3 (0-0.9); MONOCYTES % (AUTO) 9.7 % (2-12); NEUTROPHILS # (AUTO) 4.8 X10'3 (1.8-7.7); NEUTROPHILS % (AUTO) 58.7 % (42-75); PLATELET COUNT 329 X10'3 (140-440); RED BLOOD COUNT 4.67 X10'6 (4.70-6.10); RED CELL DISTRIBUTION WIDTH 13.6 % (11.5-14.5); WHITE BLOOD COUNT 8.1 X10'3 (4.5-11.0)
[2024-10-22 06:15] LABS: ALANINE AMINOTRANSFERASE 30 U/L (12-78); ALBUMIN 3.2 G/DL (3.4-5.0); ALBUMIN/GLOBULIN RATIO 0.8 (1.1-1.5); ALKALINE PHOSPHATASE 89 IU/L (46-116); ANION GAP 5 (8-16); ASPARTATE AMINO TRANSFERASE 21 U/L (10-37); BILIRUBIN,TOTAL 0.2 MG/DL (0.1-1.0); BLOOD UREA NITROGEN 20 MG/DL (7-18); BUN/CREATININE RATIO 18.5 (10.0-20.0); CALCIUM 8.9 MG/DL (8.5-10.1); CHLORIDE 103 MMOL/L (99-107); CREATININE 1.08 MG/DL (0.60-1.10); GLUCOSE 89 MG/DL (70-104); MAGNESIUM 1.9 MG/DL (1.5-2.4); POTASSIUM 4.8 MMOL/L (3.5-5.1); SODIUM 138 MMOL/L (135-145); TOTAL CARBON DIOXIDE 29.6 MMOL/L (24-32); TOTAL PROTEIN 7.2 G/DL (6.4-8.2); eCRCL 86 ML/MIN; eGFR 74 ML/MIN
[2024-10-22] MEDS ORDERED: LISI10TA27 PO (08:55)
[2024-10-22] MEDS ORDERED: CARV6.253 PO (08:55)
[2024-10-22] MEDS ORDERED: CIPR-202 PO (08:57)
[2024-10-22 10:00] VITALS: BP 107/69; PULSE 83; RESP 16; TEMP 98.7; O2SAT 97
[2024-10-22 12:43] VITALS: RESP 16; O2SAT 97
== END 2024-10-22 15:55 | disposition home or self-care (01) | DRG 463 ==
LOC: ER 16:28 → UNDOADMIN 20:50 → ED HOLD 20:50 → UNDOADMIN 10-20 02:57 → ED HOLD 10-20 03:59 → ORTHO 4S 10-20 03:59 → SUR 3N 10-21 23:11
PROVIDERS: ADMIT Internal Medicine Sleep Medicine; ATTEND Internal Medicine
DX: N30.00 Acute cystitis without hematuria (principal); I42.7 Cardiomyopathy due to drug and external agent; F15.10 Other stimulant abuse, uncomplicated; I10 Essential (primary) hypertension; I16.0 Hypertensive urgency; J45.909 Unspecified asthma, uncomplicated; Z59.00 Homelessness unspecified; F32.A Depression, unspecified; M54.9 Dorsalgia, unspecified; F41.9 Anxiety disorder, unspecified
CPT/HCPCS: 36415; 71045; 74176; 80048; 80053; 80305; 80320; 81001; 82570; 83605; 83735; 83880; 83930; 83935; 84133; 84156; 84300; 84484; 85025; 87040; 87077; 87081; 87088; 87186; 87207; 93005; 99285; G0378; J0696; J1644; J2405

== ENCOUNTER 2025-08-20 02:08 | Emergency (ER) | payer SELFPAY ==
[~2025-08-20] VITALS: Ht 180.3 cm; Wt 73.2 kg
[~2025-08-20 02:08] MED LIST changes: -ACET-1008 PO; -CARV-164 PO; +CARV6.253 PO; -FOLI1TAB27 PO; +LISI10TA27 PO; -LISI5TAB22 PO; -NICO-631 TD; -thiamine tablet PO
--- NOTE | 2025-08-20 02:52 | ELECTROCARDIOGRAPH REPORT ---
[facility] Test Date: 2025-08-20 Test Time: 02:16:46 Pat Name: DON ARREDONDO Department: EMERGENCY ROOM [id number] Room: Gender: M Cook Fruit: RINKU : 1980 Requested By: MICKEY MORRISON Order Number: [id number] Reading MD: Dr. Fernando Miller Measurements Intervals Shannon Rate: 87 P: 64 MS: 163 QRS: 4 QRSD: 122 T: 46 QT: 404 QTc: 486 Interpretive Statements Sinus rhythm Ventricular bigeminy Probable left atrial enlargement Left ventricular hypertrophy Anterior Q waves, possibly due to LVH Electronically Signed On 08-22-2025 20:44:[address] Fernando Miller Please click the below link to view image of tracing.
[2025-08-20] MEDS ORDERED: NALO4SPR BOTHNARES (04:43)
--- NOTE | 2025-08-20 04:43 | Physician Documentation ---
History of Present Illness ~ Chief Complaint: Overdose Stated Complaint: OD Time Seen by MD: 04:01 Primary Medical Doctor: NONE Mode of Arrival: EMS HPI 44-year-old male, who presents with an accidental fentanyl overdose requiring Narcan The patient tells me that he smokes fentanyl, denies IV drug use. He has had an overdose in the past requiring Narcan. He does not really remember what happened today. Currently he tells me he has a headache, but denies any other symptoms. No s hortness of breath. This was not an intentional overdose. Per EMS, the patient was found down and not breathing. He was given Narcan with good response. Medication Reconciliation Allergies: Coded Allergies: No Known Allergies (Unverified , 08/20/25) Scheduled Carvedilol (Carvedilol), 6.25 MG PO BID Lisinopril (Lisinopril), 10 MG PO DAILY Naloxone HCl (Narcan), 1 SPRAYS BOTHNARES ONCE Past Medical History Past Medical History: Hypertension, Asthma, Hepatitis C, Anxiety, Depression Past Surgical History: noncontributory Alcohol Use: Abuse Drug Use: marijuana, methamphetamine, heroin Lives with: Alone Lives In: Homeless Occupation: unemployed Review of Systems Constitutional: Denies: fever Neurological: Reports: headache Physical Exam Vital Signs: Heart Rate: 88, Respiratory Rate: 13, BP: 127/75, Pulse Oximetry: 98, Weight: 73.180 Oxygen Flow Rate: 2.0 Physical Exam General: This is a disheveled middle-aged man who is sleeping when I enter the room HEENT: Atraumatic, oropharynx is dry Heart: Mild tachycardic, appears regular Lungs: normal work of breathing, normal oxygen saturation on room air, no current respiratory depression Skin: He is diaphoretic Neuro: Alert and oriented Psychiatric: Appears tired and slightly uncomfortable, but is cooperative with exam Progress Results/Orders Results/Orders Completed Orders - MICKEY MORRISON MD Electrocardiogram (08/20/25 ) Ketorolac Trometh 15mg/Ml Vial (Toradol (08/20/25 04:50) Medications Received in ER Medications (Trade) Dose Ordered Sig/Rachel Route PRN Reason Start Time Stop Time Status Last Admin Dose Admin (Toradol injection) 15 mg ONCE ONCE IV 08/20/25 04:50 08/20/25 04:51 DC 08/20/25 05:01 15 MG Vital Signs 08/20/25 08/20/25 08/20/25 08/20/25 02:12 02:28 02:29 02:41 Pulse 104 92 91 Resp 20 17 18 18 B/P (MAP) 196/110 142/90 (107) 142/90 (107) Pulse Ox 99 97 98 08/20/25 08/20/25 08/20/25 03:28 05:01 05:02 Temp 97.9 Pulse 88 78 Resp 13 16 18 B/P (MAP) 127/75 (92) 134/77 Pulse Ox 98 99 O2 Flow Rate 2.0 Medical Decision Making Additional information obtaine: other Findings EMS report Differential Dx:Considerations: Include: Alcohol abuse, Drug Overdose- Accidental, Drug Overdose-Intentional Additional Comment The patient presents with an accidental fentanyl overdose requiring Narcan. He was observed for several hours during which he had no further respiratory depression. He does report having a headache and was given Toradol. He was given food and something to drink. After a period of observation he did not require any further Narcan or other intervention. He will be discharged home with a prescription for Narcan and return precautions. Departure Time of Disposition: 04:43 Disposition: 01 HOME / SELF CARE / HOMELESS Impression: Primary Impression: Poisoning by opiate or related narcotic Condition: Improved Discharge Instructions: Opioid Overdose Referrals: NO PRIMARY CARE PROVIDER (PCP) Prescriptions Naloxone HCl (Narcan) 4 Mg/Actuation [employer] 1 SPRAYS BOTHNARES ONCE for 14 Days, #1 EA 0 Refills Prov: MICKEY MORRISON MD 08/20/25 Education Educated: Patient Educated regarding: diagnosis, treatment, need for follow up Signature Scribe Signature: shirin Attestation: MICKEY Adams MD Aug 20, 2025 04:43
[2025-08-20] MEDS: ketorolac trometh 15mg/ml vial 15 MG/ML ML IV ONE (05:01)
[2025-08-20 05:02] VITALS: BP 134/77; PULSE 78; RESP 18; TEMP 97.9; O2SAT 99
== END 2025-08-20 06:18 | disposition home or self-care (01) ==
LOC: ER 02:09
DX: T40.411A Poisoning by fentanyl or fentanyl analogs, accidental (unintentional), initial encounter (principal); J45.909 Unspecified asthma, uncomplicated; F17.200 Nicotine dependence, unspecified, uncomplicated; F10.10 Alcohol abuse, uncomplicated; F11.90 Opioid use, unspecified, uncomplicated; I10 Essential (primary) hypertension; F41.9 Anxiety disorder, unspecified; F32.A Depression, unspecified; Z59.00 Homelessness unspecified; Z56.0 Unemployment, unspecified; Z60.2 Problems related to living alone; Z79.899 Other long term (current) drug therapy; Z86.19 Personal history of other infectious and parasitic diseases; Y90.9 Presence of alcohol in blood, level not specified; Y92.89 Other specified places as the place of occurrence of the external cause
CPT/HCPCS: 93005; 96374; 99285; J1885; A4615